=== PATIENT | female | born 1965 | race Caucasian/White ===

== ENCOUNTER 2017-12-08 17:51 | Inpatient (IN) | END 2017-12-12 15:50 | disposition home or self-care (01) | DRG 315 ==

== ENCOUNTER 2018-10-24 09:37 | Day surgery (SDC) | payer BC ==
[~2018-10-24] VITALS: Ht 160 cm; Wt 71.8 kg
[2018-10-24] VITALS (19 sets, daily range): BP systolic 94–123; BP diastolic 49–77; PULSE 76–86; RESP 14–22; Ht 160 cm; Wt 71.8 kg
[~2018-10-24 09:37] MED LIST: ATOR20TA38 PO
[2018-10-24] MEDS ORDERED: POLYMYXIN/BACITRACIN 1L IRRIG ONE (12:06)
[2018-10-24] MEDS ORDERED: LIDOCAINE 1%/EPI (1:100,000) (MDV) 20 ML ONE (12:17)
[2018-10-24] MEDS ORDERED: LIDOCAINE 1%/EPI 30 ML INJ ONE (15:55)
[2018-10-24] MEDS ORDERED: SOD CHLORIDE 0.9% 500 ML ONE (15:56)
[2018-10-24] MEDS ORDERED: MIDAZOLAM 1 MG/ML 2 ML INJ ONE (15:57)
[2018-10-24] MEDS ORDERED: FENTAnyl 50 MCG/ML VIAL ONE (15:57)
[2018-10-24] MEDS ORDERED: CEFAZOLIN 1 GM/50 ML (PMX) 50 ML IVPB ONE (16:16)
[2018-10-24] MEDS ORDERED: POLYMYXIN/BACITRACIN 1L IRRIG IRR ONE (16:30)
[2018-10-25] MEDS ORDERED: FENTAnyl 50 MCG/ML VIAL ONE (09:34)
[2018-10-25] MEDS ORDERED: PROPOFOL 20 ML ONE (09:34)
[2018-10-25] MEDS ORDERED: LIDOCAINE 1% (MDV) 20 ML INJ ONE (09:34)
== END 2018-10-24 19:00 | disposition home or self-care (01) ==
LOC: SDS 09:37 → CCL 09:37
PROVIDERS: ATTEND Internal Medicine Hematology & Oncology
DX: C19 Malignant neoplasm of rectosigmoid junction (principal)
CPT/HCPCS: 32552; 36590; 85610; 85730; 87070; J0690; J2250; J3010; J7040; Z7610